=== PATIENT | male | born 1940 ===

== ENCOUNTER 2024-12-13 15:51 | Outpatient (REF) | payer MEDICARE, OTHER, SELFPAY ==
[2024-12-13 22:19] LABS: Abs Immature Grans 0.01 10^3/uL (0.0-0.06); HCT 32.2 % (36.0-46.0); HGB 10.7 g/dL (11.2-15.7); Immature Grans % 0.2 %; MCH 36.3 pg (27.0-33.0); MCHC 33.2 % (32.0-36.0); MCV 109 fL (80-95); MPV 10.4 fL (8.0-11.0); Platelet Count 118 10^3/uL (130-400); RBC 2.95 10^6/uL (3.93-5.22); RDW 13.2 % (11.7-14.6); RDW-SD 51.3 fL; WBC 5.36 10^3/uL (4.4-10.8)
[2024-12-13 22:34] LABS: ALT 23 U/L (14-59); AST 26 U/L (15-37); Albumin 4.0 g/dL (3.4-5.0); Alkaline Phosphatase 109 U/L (46-116); Anion Gap 8.8 mmol/L (3-11); BUN 14 mg/dL (7-18); Bilirubin, Total 0.5 mg/dL (0.2-1.0); CO2 27.2 mmol/L (21.0-32.0); Calcium 10.2 mg/dL (8.5-10.1); Chloride 107 mmol/L (98-107); Estimated GFR 73.06 (mL/min/1.73m2); Glucose 111 mg/dL (74-106); Potassium 5.1 mmol/L (3.5-5.1); Sodium 143 mmol/L (136-145); Total Protein 7.6 g/dL (6.4-8.2)
[2024-12-13 22:43] LABS: Macrocytosis 2+
== END 2024-12-13 15:52 | disposition home or self-care (01) ==
LOC: LBN 15:51
PROVIDERS: Family Medicine; Visit Provider Internal Medicine Medical Oncology
DX: C61 Malignant neoplasm of prostate (principal)
CPT/HCPCS: 80053; 84154; 85025

== ENCOUNTER 2025-01-14 18:56 | Outpatient (REF) | payer MEDICARE, SELFPAY ==
[2025-01-14 21:41] LABS: Abs Immature Grans 0.01 10^3/uL (0.0-0.06); HCT 33.4 % (40.0-50.0); HGB 11.0 g/dL (13.5-17.5); Immature Grans % 0.2 %; MCH 35.7 pg (27.0-33.0); MCHC 32.9 % (32.0-36.0); MCV 108 fL (80-95); MPV 10.7 fL (8.0-11.0); Platelet Count 121 10^3/uL (130-400); RBC 3.08 10^6/uL (4.36-5.78); RDW 12.0 % (11.8-14.1); RDW-SD 46.8 fL; WBC 4.78 10^3/uL (4.4-10.8)
[2025-01-14 21:52] LABS: ALT 21 U/L (16-63); AST 24 U/L (15-37); Albumin 3.9 g/dL (3.4-5.0); Alkaline Phosphatase 96 U/L (46-116); Anion Gap 8.0 mmol/L (3-11); BUN 20 mg/dL (7-18); Bilirubin, Total 0.3 mg/dL (0.2-1.0); CO2 27.0 mmol/L (21.0-32.0); Calcium 9.9 mg/dL (8.5-10.1); Chloride 105 mmol/L (98-107); Estimated GFR 74.68 (mL/min/1.73m2); Glucose 115 mg/dL (74-106); Potassium 4.9 mmol/L (3.5-5.1); Sodium 140 mmol/L (136-145); Total Protein 7.5 g/dL (6.4-8.2)
[2025-01-14 22:00] LABS: Macrocytosis 2+
[2025-01-17 11:59] LABS: PSA, Diagnostic 302.2 ng/mL (<=6.5)
== END 2025-01-14 18:57 | disposition home or self-care (01) ==
LOC: LBN 18:56
PROVIDERS: PCP Family Medicine; Visit Provider Internal Medicine Medical Oncology
DX: C61 Malignant neoplasm of prostate (principal)
CPT/HCPCS: 80053; 84403; 84153; 85025

== ENCOUNTER 2025-02-09 17:46 | Outpatient (REF) | payer MEDICARE, SELFPAY ==
[2025-02-09 19:31] LABS: Abs Immature Grans 0.01 10^3/uL (0.0-0.06); HCT 35.7 % (40.0-50.0); HGB 11.8 g/dL (13.5-17.5); Immature Grans % 0.2 %; MCH 35.3 pg (27.0-33.0); MCHC 33.1 % (32.0-36.0); MCV 107 fL (80-95); MPV 10.7 fL (8.0-11.0); Platelet Count 134 10^3/uL (130-400); RBC 3.34 10^6/uL (4.36-5.78); RDW 11.9 % (11.8-14.1); RDW-SD 46.5 fL; WBC 4.87 10^3/uL (4.4-10.8)
[2025-02-09 19:51] LABS: Macrocytosis 1+
[2025-02-09 20:16] LABS: ALT 23 U/L (16-63); AST 25 U/L (15-37); Albumin 4.0 g/dL (3.4-5.0); Alkaline Phosphatase 106 U/L (46-116); Anion Gap 9.4 mmol/L (3-11); BUN 18 mg/dL (7-18); Bilirubin, Total 0.5 mg/dL (0.2-1.0); CO2 26.6 mmol/L (21.0-32.0); Calcium 10.6 mg/dL (8.5-10.1); Chloride 105 mmol/L (98-107); Estimated GFR 66.61 (mL/min/1.73m2); Glucose 102 mg/dL (74-106); Potassium 4.6 mmol/L (3.5-5.1); Sodium 141 mmol/L (136-145); Total Protein 7.9 g/dL (6.4-8.2)
== END 2025-02-09 17:47 | disposition home or self-care (01) ==
LOC: LBN 17:46
PROVIDERS: PCP Family Medicine; Visit Provider Internal Medicine Medical Oncology
DX: C61 Malignant neoplasm of prostate (principal)
CPT/HCPCS: 80053; 84403; 84154; 85025